=== PATIENT | female | born 1975 | race Two or more races ===

== ENCOUNTER → 2019-01-31 | Outpatient (CLI) | payer OTHER ==
--- NOTE | 2019-02-02 08:19 | RAD ---
DATE: 01/31/2019 EXAM: DIGITAL SCREEN BILAT W/CAD HISTORY: Routine screening. COMPARISON: None. This exam is the baseline. This study was interpreted with the benefit of Computerized Aided Detection (CAD). Breast Density: HETERO The breast parenchyma is heterogenously dense, which could reduce sensitivity of mammography. Breast parenchyma level C. FINDINGS: Asymmetry of the far posterior central left cc retroareolar region is noted. Asymmetry involving the right outer breast is also evident in the middle one third opacify symmetrically nipple. A small mass involving the right upper inner breast is present measuring up to 0.4 cm diameter. Minimal benign appearing calcification involves the right lower inner breast. IMPRESSION: Bilateral asymmetries and small right upper inner breast mass which is smoothly marginated. Bilateral spot compression is recommended with tomosynthesis. Ultrasound bilaterally may be needed. BI-RADS CATEGORY: 0 INCOMPLETE: NEEDS ADDITIONAL IMAGING EVALUATION AND/OR PRIOR MAMMOGRAMS FOR COMPARISON. RECOMMENDED FOLLOW-UP: ADD ADDITIONAL IMAGING PQRS compliance statement: Patient information was entered into a reminder system with a target due date pending additional imaging for the next mammogram. Mammography is a sensitive method for finding small breast cancers, but it does not detect them all and is not a substitute for careful clinical examination. A negative mammogram does not negate a clinically suspicious finding and should not result in delay in biopsying a clinically suspicious abnormality. "Our facility is accredited by the [employer] Mammography [employer]."
== END | disposition home or self-care (01) ==
LOC: MAMMO 09:58
PROVIDERS: ATTEND Family Medicine
DX: Z12.31 Encounter for screening mammogram for malignant neoplasm of breast (principal); N63.12 Unspecified lump in the right breast, upper inner quadrant; N64.89 Other specified disorders of breast
CPT/HCPCS: 77067

== ENCOUNTER → 2019-02-03 | Outpatient (CLI) | payer OTHER ==
--- NOTE | 2019-02-04 17:31 | RAD ---
DATE: 02/03/2019 EXAM: DIGITAL DIAGNOSTIC BILATERAL HISTORY: Abnormal mammogram COMPARISON: 01/31/2019 mammographic exam This study was interpreted with the benefit of Computerized Aided Detection (CAD). Breast Density: HETERO The breast parenchyma is heterogenously dense, which could reduce sensitivity of mammography. Breast parenchyma level C. FINDINGS: Spot compression bilaterally was performed. No persistent definite mass lesion. IMPRESSION: No definite persistent mass. Six-month follow bilaterally is recommended to assess stability of asymmetry is present. BI-RADS CATEGORY: 3 PROBABLY BENIGN FINDING(S)-SHORT INTERVAL FOLLOW-UP SUGGESTED RECOMMENDED FOLLOW-UP: 6M 6 MONTH FOLLOW-UP PQRS compliance statement: Patient information was entered into a reminder system with a target due date in 6 months for the next mammogram. Mammography is a sensitive method for finding small breast cancers, but it does not detect them all and is not a substitute for careful clinical examination. A negative mammogram does not negate a clinically suspicious finding and should not result in delay in biopsying a clinically suspicious abnormality. "Our facility is accredited by the [employer] Mammography [employer]."
== END | disposition home or self-care (01) ==
LOC: MAMMO 13:21
PROVIDERS: ATTEND Family Medicine
DX: R92.8 Other abnormal and inconclusive findings on diagnostic imaging of breast (principal)
CPT/HCPCS: 77066

== ENCOUNTER → 2019-12-29 | Outpatient (CLI) | payer OTHER ==
--- NOTE | 2019-12-29 15:20 | RAD ---
DATE: 12/29/2019 1:30 PM EXAM: MAMMO LEONIDESElisabet GLOVER, BREAST RIGHT HISTORY: Six-month follow-up bilateral asymmetries recalled from baseline screening. Patient has a sister in her 40s with a new diagnosis of breast cancer. COMPARISON: Bilateral screening mammogram of 01/31/2019 and bilateral diagnostic mammogram of 02/03/2019. Bilateral CC, ML and MLO views of the breasts were performed. Bilateral breast tomosynthesis was performed in CC and MLO projections. This study was interpreted with the benefit of Computerized Aided Detection (CAD). Targeted ultrasound of the right breast was next pursued. FINDINGS: Breast Density: HETERO The breast parenchyma Is heterogeneously dense, which could reduce sensitivity of mammography. Breast parenchyma level C Left digital diagnostic mammogram revealed no persistent mammographic abnormality with a nodular parenchymal pattern compatible benign cystic change. Right digital diagnostic mammogram also shows a nodular parenchymal pattern but in the middle third upper outer right breast is an 8 mm oval mass best seen on cc image 35 of 61 on the tomographic series approximately 6 cm from the nipple that is dense and has a microlobulated margin. It was pursued for additional imaging by targeted ultrasound which revealed a 4 mm mass with indistinct margins at the 11:30 o'clock position 5 cm from the nipple that likely correlates with the mammographic finding of interest. This is suspicious with a low index of suspicion for malignancy and recommended for biopsy. IMPRESSION: Suspicious mass in the middle third upper outer right breast. Biopsy recommended. This may be pursued either with stereotactic imaging guidance (preferred) or with ultrasound. Discussed with the patient prior to her discharge from the imaging suite as well as with her referring physician Dr. Yolette Roberts by telephone at 2:59 PM on 12/29/2019. BI-RADS CATEGORY: 4 SUSPICIOUS ABNORMALITY- BIOPSY SHOULD BE CONSIDERED RECOMMENDED FOLLOW-UP: BIO BIOPSY RECOMMENDED Stereotactic (or, alternatively, ultrasound guided) right breast biopsy is recommended. PQRS compliance statement: Patient information was entered into a reminder system with a target due date for the next mammogram. Mammography is a sensitive method for finding small breast cancers, but it does not detect them all and is not a substitute for careful clinical examination. A negative mammogram does not negate a clinically suspicious finding and should not result in delay in biopsying a clinically suspicious abnormality. "Our facility is accredited by the [employer] Mammography Program."
== END | disposition home or self-care (01) ==
LOC: MAMMO 13:16
PROVIDERS: ATTEND Family Medicine
DX: R92.2 Inconclusive mammogram (principal)
CPT/HCPCS: 76641; 77066; G0279; 77062

== ENCOUNTER → 2020-01-20 | Outpatient (CLI) | payer OTHER ==
[~2020-01-20] MED LIST: LIDOCAINE 2%/EPI 1:100,000 20 ML VIAL. INJ ONE
--- NOTE | 2020-01-20 16:08 | RAD ---
Examination: 1. Right breast stereotactic biopsy. 2. Right digital postprocedure mammogram INDICATION: Right breast mass recommended first are detected biopsy. COMPARISON: Right mammogram and diagnostic breast ultrasound of 12/29/2019 TECHNIQUE AND FINDINGS: Informed consent was obtained and an appropriate procedural pause observed. Using standard sterile technique, sterile technique and imaging guidance and local anesthesia, multiple 19-gauge vacuum-assisted core biopsy samples of the targeted mass in the upper outer quadrant right breast were obtained and a ronal-shaped biopsy marker deployment following needle removal. Hemostasis was assured with direct breast compression and a postprocedure mammogram was obtained. The postprocedure mammogram showed postbiopsy changes at the location of the targeted mass and satisfactory deployment of the ronal-shaped biopsy marker in the upper outer right breast. No apparent complications. Patient tolerated the procedure without incident. Post procedure instructions were reviewed on the patient was discharged in stable condition to follow up with her referring physician. IMPRESSION: Successful right breast stereotactic biopsy of the mass in the upper-outer quadrant. Pathology results are pending. An addendum will be issued once pathology results become available Electronically signed by: Gualberto Birmingham MD (01/20/2020 4:05 PM) [id number]
--- NOTE | 2020-01-25 19:06 | PATHOLOGY ---
[facility] Accession Number: [id number] . 01 Material submitted: . breast - RIGHT BREAST TISSUE. Modifiers: right . 01 Clinical history: . RIGHT BREAST MASS . 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 - Background fibrocystic change including dense fibrosis and focal adenosis. - Microcalcification. - Please see comment. (IDRIS:eamon; 01/22/2020) R 01/25/2020 1144 Local . 02 Comment: The case was seen in co-review with Dr. Richar Philip who concurs with the above diagnosis. (IDRIS:eamon; 01/22/2020) . 02 Electronically signed: . Muriel Zelaya MD, Pathologist NPI- [id number] . 01 Gross description: . The specimen is received in formalin, labeled "Tori Fabian, right breast". Received are multiple needle cores of fibrofatty tissue measuring 3.4 x 3.3 x 0.7 cm in aggregate dimensions. The specimen is submitted entirely in cassettes A1 through A3. The cold ischemic time is 5 minutes. The total formalin fixation time is 31 hours. ([facility]; 01/21/2020) QAC/QAC 01/21/2020 1716 Local . 02 Pathologist provided ICD-10: D24.1, N60.11, N60.31, R92.0 . 02 CPT . 712762 Specimen Comment: A courtesy copy of this report has been sent to [phone], [phone] Specimen Comment: [id number] Specimen Comment: Report sent to / DR ROBERTS Performed at: [address] [place] [address] [id number] MD Fer Oakes MD Phone: [phone] Performed at: [id number] [address] [id number] MD New Escalante MD Phone: [phone]
== END | disposition home or self-care (01) ==
LOC: MAMMO 13:52
PROVIDERS: ATTEND Family Medicine
DX: R92.8 Other abnormal and inconclusive findings on diagnostic imaging of breast (principal)
CPT/HCPCS: 19081; 77065; 88305; J3490; 19085; 77022